=== PATIENT | male | born 1960 | race Caucasian/White ===

== ENCOUNTER 2017-10-18 08:37 | Day surgery (SDC) | payer OTHER ==
[~2017-10-18 08:37] MED LIST: Lactated Ringers 1,000 ML IV ONE; Lactated Ringers 1,000 ML IV SCH; Sensorcaine 0.25% 10 ML ONE
[2017-10-18] MEDS ORDERED: SUBLIMAZE 100 MCG/2 ML IV ONE (08:38)
[2017-10-18] MEDS ORDERED: Ketamine HCl 50 MG/ML IJ ONE (08:38)
[2017-10-18] MEDS ORDERED: DIPRIVAN 200 MG/20 ML IV ONE (08:38)
[2017-10-18] MEDS ORDERED: Marcaine Spinal Ampul IJ ONE (08:38)
[2017-10-18] MEDS ORDERED: Versed 2 MG/2 ML Injection IV ONE (08:38)
[2017-10-18] MEDS ORDERED: Lactated Ringers 1,000 ML IV ONE (08:48)
--- NOTE | 2017-10-18 09:04 | HP ---
PROCEDURE DATE: 10/18/17 HISTORY OF PRESENT ILLNESS: Patient is a 57 y/o with 5 year history of spot on his scrotum. Saw urologist last year. Nonhealing area now that doesn't improve. He is concerned. Desires excision for biopsy and path. PAST MEDICAL HISTORY: Some low back pain, hypercholesterolemia, and hypertension. CURRENT MEDICATIONS: Amlodipine, atorvastatin, benazepril hydrochlorothiazide. ALLERGIES: NKDA. PAST SURGICAL HISTORY: He had appendectomy. He had cholecystectomy. He had 7 abdominal hernias in the past. FAMILY HISTORY: Hypertension, heart disease, cancer. SOCIAL HISTORY: Denies smoking or alcohol abuse. REVIEW OF SYSTEMS: 12 systems reviewed. No chest pain or palpitations. Other systems negative or noncontributory other than above and per preadmission questionnaire. PHYSICAL EXAMINATION: GENERAL: No acute distress. HEENT: Sclerae nonicteric. NECK: No JVD. CHEST: Equal excursion. Nonlabored breathing. CVS: Regular rate and rhythm. ABDOMEN: Soft. No peritoneal signs. EXTREMITIES: No edema or cyanosis. NEURO: Alert and oriented, moving extremities symmetrically. No gross motor deficits noted. GENITALIA: On his scrotum, he has got a nonhealing lesion of the skin. Whether cyst or other lesion is unclear, but it is nonhealing and desires excision. IMPRESSION: 1. NONHEALING SCROTAL LESION. Feel the patient would benefit from excisional biopsy. He understands that if fails to heal or worsens or fails to heal the wound after excision and has recurrence, may be referred to urologist for further intervention or opinion. He understands as well as general risks of anesthesia, deep vein thrombosis, pulmonary embolism, or pneumonia; general risk of aches, pains, burning, or numbness possibly long-term or chronic in nature. He understands and agrees to the planned procedure. Will proceed with excisional biopsy of nonhealing scrotal lesion as an outpatient.
[2017-10-18] MEDS ORDERED: KEFZOL 1 GM ONE (11:07)
[2017-10-18] MEDS ORDERED: Zofran 4 MG/2 ML VIAL IV STA (14:25)
[2017-10-18] MEDS ORDERED: Zofran 4 MG/2 ML VIAL ONE (14:26)
[2017-10-18 14:56] VITALS: BP 131/79; PULSE 69; O2SAT 96
--- NOTE | 2017-10-19 10:14 | OP ---
SURGERY DATE: 10/18/17 SURGERY TIME: 1039 PREOPERATIVE DIAGNOSIS: 1. ENLARGING NONHEALING SCROTAL LESION. POSTOPERATIVE DIAGNOSIS: 1. ENLARGING NONHEALING SCROTAL LESION. PROCEDURE: 1. Excisional biopsy nonhealing scrotal lesion (approximately 4.5 cm with margins) with intermediate closure. SURGEON: Dr. Pipo Richardson. ANESTHESIA: Spinal with local 1% Lidocaine. ESTIMATED BLOOD LOSS: Minimal. INDICATIONS: As noted above. Risks and benefits explained in detail, but not limited to. Consent was obtained. DESCRIPTION OF PROCEDURE AND FINDINGS: Taken to the OR. Spinal anesthesia was induced. Scrotal area was prepped and draped in the usual sterile fashion. After official time-out, no disagreement in planned procedure. Marking out to normal-appearing skin on either side. This was more of a transversely oriented lesion requiring transverse spindle-shaped excision pattern. Dissection was carried down to the more normal-appearing fascia underneath carefully dissecting the specimen off measuring about 4.5 cm with margins and passed off for pathology an approximately 5.5-6 cm long spindle-shaped excision pattern. Hemostasis controlled with some pinpoint cautery. Good hemostasis noted. It should be noted local had been infiltrated around the area previously. Then closed in layers, deep superficial subq and deep dermis closed with interrupted 3-0 Monocryl. Skin closed with 4-0 Monocryl in running subcuticular fashion. Some Dermabond glue, sterile dressing, and scrotal supporter was then given. Patient tolerated the procedure well. Findings discussed with the family out in the waiting area.
== END 2017-10-18 15:05 | disposition home or self-care (01) ==
LOC: SDC 08:37
PROVIDERS: ATTEND Surgery
DX: N50.9 Disorder of male genital organs, unspecified (principal); R20.8 Other disturbances of skin sensation; I10 Essential (primary) hypertension; E78.00 Pure hypercholesterolemia, unspecified; Z79.899 Other long term (current) drug therapy
CPT/HCPCS: 93005; 94250; J0690; J2250; J2405; J2704; J3010